=== PATIENT | male | born 1985 | race Caucasian/White ===

== ENCOUNTER 2020-10-06 19:41 | Emergency (ER) | payer MEDICAID ==
[~2020-10-06] VITALS: Ht 180.3 cm; Wt 72.7 kg
[2020-10-06 19:48] VITALS: Ht 180.3 cm; Wt 72.7 kg
[2020-10-06] MEDS ORDERED: SUBOXONE 2 MG-01 TAB SL (19:51)
[2020-10-06] MEDS ORDERED: KLONOPIN0.5 MG PO (19:51)
[2020-10-06 20:10] LABS: BASOPHILS 0.4 % (0-2); HEMATOCRIT 44.2 % (42.0-54.0); HEMOGLOBIN 15.5 g/dL (13.5-17.5); IMMATURE GRANULOCYTES 0.3 % (0-5); LYMPHOCYTE ABS# 2.77 10x3/uL (1.32-3.57); LYMPHOCYTES 36.1 % (15-50); MCH 30.8 pg (26.0-34.0); MCHC 35.1 g/dL (31.0-37.0); MCV 87.9 fL (80.0-100.0); MEAN PLATELET VOLUME 9.7 fL (7.4-10.4); MONOCYTES 8.1 % (2-11); NEUTROPHIL ABS# 4.08 10x3/uL (1.78-5.38); NEUTROPHILS 53.1 % (40-80); PLATELET COUNT 263 10x3/uL (130-400); RBC 5.03 10x6/uL (4.20-6.10); RDW 12.4 % (11.5-14.5); WBC 7.7 10x3/uL (4.8-10.8)
[2020-10-06 20:12] LABS: BILIRUBIN NEGATIVE (NEGATIVE); KETONE NEGATIVE (NEGATIVE); NITRITE NEGATIVE (NEGATIVE); UROBILINOGEN NORMAL mg/dL (< 2)
[2020-10-06 20:15] LABS: UDS - AMPHET NEGATIVE QUAL (NEGATIVE); UDS - BARB NEGATIVE QUAL (NEGATIVE); UDS - BENZO NEGATIVE QUAL (NEGATIVE); UDS - COCAINE NEGATIVE QUAL (NEGATIVE); UDS - OPIATE NEGATIVE QUAL (NEGATIVE); UDS - PCP NEGATIVE QUAL (NEGATIVE); UDS - THC NEGATIVE QUAL (NEGATIVE)
[2020-10-06 20:23] LABS: CALC OSMOLALITY 275 mosm/kg (275-300); CALCIUM 9.4 mg/dL (8.5-10.1); CARBON DIOXIDE 28.7 mmol/L (21.0-32.0); CHLORIDE - SERUM 104 mmol/L (98-107); CREATININE - SERUM 0.9 mg/dL (0.6-1.3); GLUCOSE 106 mg/dL (74-106); POTASSIUM - SERUM 3.9 mmol/L (3.5-5.1); SODIUM 138 mmol/L (136-145); UREA NITROGEN 13 mg/dL (7-18); eGFR NON AFRICAN AMERICAN > 90 mL/min (90-120)
[2020-10-06 20:29] LABS: ALBUMIN 4.1 g/dL (3.4-5.0); ALKALINE PHOSPHATASE 123 U/L (30-120); ALT (SGPT) 54 U/L (10-68); BILIRUBIN - TOTAL 0.45 mg/dL (0.2-1.3); PROTEIN - SERUM 7.4 g/dL (6.4-8.2)
[2020-10-06] MEDS ORDERED: MAXALT MLT10 MG/TAB PO (21:50)
[2020-10-06 22:20] VITALS: BP 120/85
== END 2020-10-06 22:20 | disposition home or self-care (01) ==
LOC: D.ER 19:41
PROVIDERS: Family Medicine
DX: G43.909 Migraine, unspecified, not intractable, without status migrainosus (principal)